=== PATIENT | female | born 1940 | race Hispanic/Latino ===

== ENCOUNTER 2017-04-06 11:49 | Inpatient (IN) | payer MEDICARE ==
[~2017-04-06] VITALS: Ht 157.5 cm; Wt 74.1 kg
[~2017-04-06 11:49] MED LIST: ACET650T9 PO; ASPI81TA40 PO; DOXY100C2 PO; ERGO500014 PO; FOLI1TAB15 PO; GABA-529 PO; HYDR200T4 PO; LEFL10TA15 PO; LEVO75 PO; METO5TAB2 PO; OMEP20CA10 PO; POTA10TA14 PO; SIMV40TA59 PO
[2017-04-06 12:17] LABS: BASOPHILS % (AUTO) 0.1 % (0.0-5.0); EOSINOPHILS % (AUTO) 1.1 % (0.0-8.0); HEMATOCRIT 34.5 % (36-48); LYMPHOCYTES % (AUTO) 5.4 % (21.0-51.0); MEAN CORPUSCULAR HEMOGLOBIN 32.8 pg (27.0-33.0); MEAN CORPUSCULAR HGB CONC 33.3 g/dL (32.0-36.0); MEAN CORPUSCULAR VOLUME 98.5 fL (79-99); MONOCYTES % (AUTO) 5.4 % (3.0-13.0); PLATELET COUNT (AUTO) 230 K/uL (130-400); RED BLOOD CELL COUNT(AUTO) 3.51 MIL/uL (4.00-5.50); RED CELL DISTRIBUTION WIDTH 15.8 % (11.0-15.5); WHITE BLOOD COUNT (AUTO) 12.3 K/uL (4.8-10.8)
[2017-04-06 12:26] LABS: POTASSIUM 4.2 mmol/L (3.5-5.1)
[2017-04-06 12:34] LABS: INR 0.95 (0.85-1.15); PARTIAL THROMBOPLASTIN TIME 30.7 SEC (26.3-35.5)
[2017-04-06 12:41] LABS: ALBUMIN 3.2 g/dL (3.5-5.0); BILIRUBIN,TOTAL 0.5 mg/dL (0.2-1.0); TOTAL PROTEIN, SERUM 7.3 g/dL (6.0-8.3)
[2017-04-06 12:44] LABS: CREATINE KINASE MB < 0.5 ng/mL (0.5-3.6)
[2017-04-06 12:45] LABS: CREATINE KINASE, TOTAL 57 U/L (21-232)
[2017-04-06] MEDS ORDERED: ASPIRIN 325 MG TABLET ONE (13:36)
[2017-04-06] MEDS ORDERED: FUROSEMIDE 10 MG/ML 4ML VIAL ONE (15:37)
[2017-04-06] MEDS ORDERED: CEFTRIAXONE SODIUM 1 GM ONE (15:38)
[2017-04-06] MEDS ORDERED: AZITHROMYCIN 500MG+NS 250ML 250 ML IV ONE (15:38)
[2017-04-06] MEDS ORDERED: IPRATROPIUM/ALBUTEROL SULFATE 3 ML SOLUTION IH ONE ×2 (16:23→19:23)
[2017-04-06] MEDS ORDERED: ACETAMINOPHEN EXTENDED RELEASE 650 MG TABLET PO PRN (17:15)
[2017-04-06 18:40] VITALS: BP 139/80
[2017-04-06] MEDS ORDERED: FURO20TA4 PO (19:19)
[2017-04-06] MEDS ORDERED: CARV12.511 PO (19:19)
[2017-04-06] MEDS ORDERED: ALLO300T2 PO (19:19)
[2017-04-06] MEDS ORDERED: CLON0.1T PO (19:19)
[2017-04-06] MEDS ORDERED: CILO100T PO (19:19)
[2017-04-06] MEDS ORDERED: VIT-12 PO (19:19)
[2017-04-06] MEDS ORDERED: FE F1CAP33 PO (19:19)
[2017-04-06 19:27] VITALS: BP 178/97
[2017-04-06] MEDS: HYDROXYCHLOROQUINE SULFATE 200 MG TAB PO SCH (20:17)
[2017-04-06] MEDS: ATORVASTATIN CALCIUM 20 MG TABLET PO SCH (20:18)
[2017-04-06] MEDS: GABAPENTIN 100 MG CAPSULE PO SCH (20:18)
[2017-04-06] MEDS: METOCLOPRAMIDE 5 MG TABLET PO SCH (20:18)
[2017-04-06 21:31] LABS: CREATINE KINASE MB < 0.5 ng/mL (0.5-3.6); CREATINE KINASE, TOTAL 53 U/L (21-232); MYOGLOBIN 104 ng/mL (10-92); TROPONIN I 0.45 ng/mL (0.00-0.06)
[2017-04-06 23:29] VITALS: BP 127/71
[2017-04-07] VITALS (7 sets, daily range): BP systolic 143–186; BP diastolic 72–94
[2017-04-07] MEDS: IPRATROPIUM/ALBUTEROL SULFATE 3 ML SOLUTION IH PRN ×3 (00:38→19:04)
[2017-04-07] MEDS ORDERED: ACETAMINOPHEN 325 MG TAB PO PRN (02:45)
[2017-04-07] MEDS ORDERED: BENZONATATE 100 MG CAPSULE PO ONE ×2 (02:50)
[2017-04-07] MEDS: BENZONATATE 100 MG CAPSULE PO PRN ×2 (02:53→21:12)
[2017-04-07] MEDS ORDERED: CLONIDINE HCL 0.1 MG TABLET ONE (04:08)
[2017-04-07] MEDS ORDERED: CLONIDINE HCL 0.1 MG TABLET PO PRN (04:15)
[2017-04-07 06:06] LABS: HEMATOCRIT 30.1 % (36-48); MEAN CORPUSCULAR HEMOGLOBIN 33.6 pg (27.0-33.0); MEAN CORPUSCULAR VOLUME 98.7 fL (79-99); PLATELET COUNT (AUTO) 223 K/uL (130-400); RED BLOOD CELL COUNT(AUTO) 3.05 MIL/uL (4.00-5.50); RED CELL DISTRIBUTION WIDTH 15.7 % (11.0-15.5)
[2017-04-07 06:21] LABS: CARBON DIOXIDE 26 mmol/L (21-32); CHLORIDE 107 mmol/L (101-111); GLOMERULAR FILTR. RATE CALC 58 mL/min (>60); GLUCOSE,RANDOM 118 mg/dL (70-105); POTASSIUM 3.4 mmol/L (3.5-5.1); SODIUM SERUM 142 mmol/L (136-145); UREA NITROGEN, BLOOD 20 mg/dL (7-18)
[2017-04-07 06:42] LABS: CREATINE KINASE MB < 0.5 ng/mL (0.5-3.6); CREATINE KINASE, TOTAL 46 U/L (21-232); MYOGLOBIN 76 ng/mL (10-92); TROPONIN I 0.47 ng/mL (0.00-0.06)
[2017-04-07] MEDS: LEVOTHYROXINE 75 MCG TABLET PO SCH (07:00)
[2017-04-07 07:09] LABS: EOSINOPHILS % (MANUAL) 2 % (1-6); LYMPHOCYTES % (MANUAL) 12 % (22-44); MAN.DIFF COMMENT-IMPRESSION MANUAL DIFFERENTIAL; MONOCYTES % (MANUAL) 9 % (2-9); SEGMENTED NEUTROPHILS % 77 % (40-70)
[2017-04-07 07:11] LABS: PLATELET MORPHOLOGY COMMENT ADEQUATE
[2017-04-07] MEDS: PANTOPRAZOLE SODIUM 40 MG TABLET.DR PO SCH (09:00)
[2017-04-07] MEDS: METOCLOPRAMIDE 5 MG TABLET PO SCH ×3 (09:00→21:03)
[2017-04-07] MEDS: GABAPENTIN 100 MG CAPSULE PO SCH ×3 (09:01→21:03)
[2017-04-07] MEDS: ASPIRIN 81 MG EC TAB PO SCH (09:01)
[2017-04-07] MEDS: FOLIC ACID 1 MG TABLET PO SCH (09:01)
[2017-04-07] MEDS: HYDROXYCHLOROQUINE SULFATE 200 MG TAB PO SCH ×2 (09:01→21:04)
[2017-04-07] MEDS: CEFTRIAXONE SODIUM 1 GM IVP SCH (14:46)
[2017-04-07] MEDS: AZITHROMYCIN 500MG+NS 250ML 250 ML IV SCH (15:53)
[2017-04-07] MEDS: FUROSEMIDE 20 MG TABLET PO SCH (16:25)
[2017-04-07] MEDS: CILOSTAZOL 100 MG TAB PO SCH (16:25)
[2017-04-07] MEDS: Leflunomide 10 MG PO SCH (16:26)
[2017-04-07] MEDS ORDERED: POTASSIUM CHLORIDE 10% ELIXIR 20 MEQ/15 ML UDCUP PO PRN (19:30)
[2017-04-07] MEDS ORDERED: POTASSIUM CHLORIDE 20 MEQ ERTAB PO PRN (19:30)
[2017-04-07] MEDS ORDERED: POTASSIUM CHLORIDE 20MEQ/100ML 100 ML IV PRN (19:30)
[2017-04-07] MEDS ORDERED: LIDOCAINE HCL-MPF 1% 2ML VIAL IVP PRN (19:30)
[2017-04-07] MEDS ORDERED: POTASSIUM CHLORIDE 10 MEQ/TAB.SA PO ONE ×4 (20:58→22:29)
[2017-04-07] MEDS: CLONIDINE HCL 0.1 MG TABLET PO SCH (21:03)
[2017-04-07] MEDS: ATORVASTATIN CALCIUM 20 MG TABLET PO SCH (21:04)
[2017-04-07] MEDS: CARVEDILOL 12.5 MG TABLET PO SCH (23:47)
[2017-04-08 03:43] VITALS: BP 159/75
[2017-04-08 04:10] LABS: HEMATOCRIT 33.5 % (36-48); MEAN CORPUSCULAR HEMOGLOBIN 32.5 pg (27.0-33.0); MEAN CORPUSCULAR VOLUME 98.7 fL (79-99); PLATELET COUNT (AUTO) 250 K/uL (130-400); RED BLOOD CELL COUNT(AUTO) 3.39 MIL/uL (4.00-5.50); RED CELL DISTRIBUTION WIDTH 15.7 % (11.0-15.5); WHITE BLOOD COUNT (AUTO) 8.4 K/uL (4.8-10.8)
[2017-04-08 04:13] LABS: CREATININE 0.9 mg/dL (0.5-1.5); POTASSIUM 3.8 mmol/L (3.5-5.1)
[2017-04-08 04:29] LABS: BAND NEUTROPHILS % (MANUAL) 2 % (0-2); EOSINOPHILS % (MANUAL) 3 % (1-6); LYMPHOCYTES % (MANUAL) 10 % (22-44); MAN.DIFF COMMENT-IMPRESSION MANUAL DIFFERENTIAL; MONOCYTES % (MANUAL) 6 % (2-9); SEGMENTED NEUTROPHILS % 79 % (40-70)
[2017-04-08 04:30] LABS: PLATELET MORPHOLOGY COMMENT ADEQUATE
[2017-04-08] MEDS: LEVOTHYROXINE 75 MCG TABLET PO SCH (06:34)
[2017-04-08 07:00] VITALS: BP 179/84
[2017-04-08] MEDS ORDERED: MAG HYDROX/AL HYDROX/SIMETH ES 30 ML SUSP UDCUP PO PRN (07:15)
[2017-04-08] MEDS: LACTULOSE 20 GM/30 ML UDCUP PO SCH ×2 (09:00→20:24)
[2017-04-08] MEDS: HYDROXYCHLOROQUINE SULFATE 200 MG TAB PO SCH ×2 (09:38→20:46)
[2017-04-08] MEDS: ALLOPURINOL 300 MG TABLET PO SCH (09:38)
[2017-04-08] MEDS: CLONIDINE HCL 0.1 MG TABLET PO SCH ×2 (09:39→20:26)
[2017-04-08] MEDS: FE FUMARATE/FA/MV, MIN COMB#15 1 TAB PO SCH (09:39)
[2017-04-08] MEDS: METOCLOPRAMIDE 5 MG TABLET PO SCH ×3 (09:40→20:25)
[2017-04-08] MEDS: PANTOPRAZOLE SODIUM 40 MG TABLET.DR PO SCH (09:40)
[2017-04-08] MEDS: ASPIRIN 81 MG EC TAB PO SCH (09:40)
[2017-04-08] MEDS: FOLIC ACID 1 MG TABLET PO SCH (09:40)
[2017-04-08] MEDS: CARVEDILOL 12.5 MG TABLET PO SCH ×2 (09:40→20:24)
[2017-04-08] MEDS: GABAPENTIN 100 MG CAPSULE PO SCH ×3 (09:41→20:25)
[2017-04-08] MEDS: CILOSTAZOL 100 MG TAB PO SCH ×2 (09:45→17:04)
[2017-04-08] MEDS: FUROSEMIDE 20 MG TABLET PO SCH ×2 (09:45→17:04)
[2017-04-08 11:00] VITALS: BP 138/82
[2017-04-08] MEDS: CEFTRIAXONE SODIUM 1 GM IVP SCH (13:52)
[2017-04-08 16:00] VITALS: BP 155/86
[2017-04-08] MEDS: AZITHROMYCIN 500MG+NS 250ML 250 ML IV SCH (16:07)
[2017-04-08] MEDS: Leflunomide 10 MG PO SCH (17:00)
[2017-04-08 19:25] VITALS: BP 167/87
[2017-04-08] MEDS: ATORVASTATIN CALCIUM 20 MG TABLET PO SCH (20:24)
[2017-04-08 23:31] VITALS: BP 146/81
[2017-04-09] MEDS: BENZONATATE 100 MG CAPSULE PO PRN (03:14)
[2017-04-09 03:50] VITALS: BP 165/95
[2017-04-09 04:30] LABS: HEMATOCRIT 32.9 % (36-48); MEAN CORPUSCULAR HEMOGLOBIN 33.3 pg (27.0-33.0); MEAN CORPUSCULAR HGB CONC 33.9 g/dL (32.0-36.0); MEAN CORPUSCULAR VOLUME 98.1 fL (79-99); PLATELET COUNT (AUTO) 266 K/uL (130-400); RED BLOOD CELL COUNT(AUTO) 3.35 MIL/uL (4.00-5.50); RED CELL DISTRIBUTION WIDTH 15.3 % (11.0-15.5); WHITE BLOOD COUNT (AUTO) 9.2 K/uL (4.8-10.8)
[2017-04-09] MEDS: LEVOTHYROXINE 75 MCG TABLET PO SCH (06:00)
[2017-04-09 06:08] LABS: BAND NEUTROPHILS % (MANUAL) 2 % (0-2); EOSINOPHILS % (MANUAL) 1 % (1-6); LYMPHOCYTES % (MANUAL) 8 % (22-44); MAN.DIFF COMMENT-IMPRESSION MANUAL DIFFERENTIAL; MONOCYTES % (MANUAL) 5 % (2-9); REACTIVE LYMPHOCYTES 1 % (0-0); SEGMENTED NEUTROPHILS % 83 % (40-70)
[2017-04-09 07:00] VITALS: BP 172/93
[2017-04-09] MEDS: FUROSEMIDE 20 MG TABLET PO SCH (08:00)
[2017-04-09] MEDS ORDERED: LEVO500T89 PO (08:32)
[2017-04-09] MEDS: LACTULOSE 20 GM/30 ML UDCUP PO SCH (09:00)
[2017-04-09] MEDS: PANTOPRAZOLE SODIUM 40 MG TABLET.DR PO SCH (09:18)
[2017-04-09] MEDS: ALLOPURINOL 300 MG TABLET PO SCH (09:19)
[2017-04-09] MEDS: FOLIC ACID 1 MG TABLET PO SCH (09:19)
[2017-04-09] MEDS: ASPIRIN 81 MG EC TAB PO SCH (09:19)
[2017-04-09] MEDS: CLONIDINE HCL 0.1 MG TABLET PO SCH (09:19)
[2017-04-09] MEDS: CILOSTAZOL 100 MG TAB PO SCH (09:19)
[2017-04-09] MEDS: METOCLOPRAMIDE 5 MG TABLET PO SCH (09:19)
[2017-04-09] MEDS: HYDROXYCHLOROQUINE SULFATE 200 MG TAB PO SCH (09:19)
[2017-04-09 09:20] VITALS: BP 172/93
[2017-04-09] MEDS: FE FUMARATE/FA/MV, MIN COMB#15 1 TAB PO SCH (09:20)
[2017-04-09] MEDS: CARVEDILOL 12.5 MG TABLET PO SCH (09:20)
[2017-04-09] MEDS: GABAPENTIN 100 MG CAPSULE PO SCH (09:20)
== END 2017-04-09 11:15 | disposition home or self-care (01) | DRG 871 ==
LOC: EDH 11:49 → EDHIP 15:53 → 2DH 18:09
PROVIDERS: ADMIT Internal Medicine Nephrology; ATTEND Internal Medicine Nephrology
DX: A41.9 Sepsis, unspecified organism (principal); J18.9 Pneumonia, unspecified organism; I50.33 Acute on chronic diastolic (congestive) heart failure; E87.8 Other disorders of electrolyte and fluid balance, not elsewhere classified; E11.9 Type 2 diabetes mellitus without complications; E07.9 Disorder of thyroid, unspecified; E78.00 Pure hypercholesterolemia, unspecified; I10 Essential (primary) hypertension; I25.10 Atherosclerotic heart disease of native coronary artery without angina pectoris; K59.00 Constipation, unspecified; Z82.49 Family history of ischemic heart disease and other diseases of the circulatory system; Z83.3 Family history of diabetes mellitus; Z95.1 Presence of aortocoronary bypass graft; M19.90 Unspecified osteoarthritis, unspecified site; Z90.49 Acquired absence of other specified parts of digestive tract
CPT/HCPCS: 36415; 71045; 80048; 80053; 82550; 82553; 83605; 83874; 83880; 84484; 85025; 85610; 85730; 87040; 87804; 93005; 94640; 94664; A4218; J0456; J0696; J1940

== ENCOUNTER 2018-03-17 19:58 | Observation (INO) | payer MEDICARE ==
[~2018-03-17] VITALS: Ht 152.4 cm; Wt 87.6 kg
[~2018-03-17 19:58] MED LIST changes: -ACET650T9 PO; +ALLO300T2 PO; +CARV12.511 PO; +CILO100T PO; +CLON0.1T PO; -DOXY100C2 PO; -ERGO500014 PO; +FE F1CAP33 PO; +FURO20TA4 PO; -HYDR200T4 PO; -LEFL10TA15 PO; +LEVO500T89 PO; +[UNRECOGNIZED DRUG - CODE] PO
[2018-03-17 21:04] LABS: BASOPHILS % (AUTO) 0.7 % (0.0-5.0); EOSINOPHILS % (AUTO) 3.7 % (0.0-8.0); HEMATOCRIT 38.1 % (36-48); LYMPHOCYTES % (AUTO) 16.1 % (21.0-51.0); MEAN CORPUSCULAR HGB CONC 33.6 g/dL (32.0-36.0); MEAN CORPUSCULAR VOLUME 95.1 fL (79-99); MONOCYTES % (AUTO) 6.2 % (3.0-13.0); NEUTROPHILS % (AUTO) 73.3 % (40.0-77.0); NUCLEATED RED BLOOD CELLS 0.6 % (0.0-0.19); PLATELET COUNT (AUTO) 178 K/uL (130-400); RED CELL DISTRIBUTION WIDTH 13.6 % (11.0-15.5); WHITE BLOOD COUNT (AUTO) 8.9 K/uL (4.8-10.8)
[2018-03-17 21:10] LABS: APPEARANCE,URINE Clear (CLEAR); BILIRUBIN,URINE Negative (NEGATIVE); COLOR,URINE Yellow (YELLOW); GLUCOSE, URINE (UA) Negative (NEGATIVE); KETONES,URINE Negative (NEGATIVE); LEUKOCYTE ESTERASE ,URINE Trace (NEGATIVE); NITRATE,URINE Negative (NEGATIVE); OCCULT BLOOD,URINE Negative (NEGATIVE); PH,URINE 7.5 (5.0-8.0); PROTEIN,URINE Negative (NEGATIVE); UROBILINOGEN,URINE 0.2 mg/dL (0.2-1.0)
[2018-03-17] MEDS ORDERED: TETANUS/DIPHTHERIA TOXOID [ADULT] 0.5 ML VIAL IM ONE (21:15)
[2018-03-17 21:43] LABS: CREATININE 1.4 mg/dL (0.5-1.5); POTASSIUM 3.7 mmol/L (3.5-5.1)
[2018-03-17 21:47] LABS: ALBUMIN 3.3 g/dL (3.5-5.0); BILIRUBIN,TOTAL 0.3 mg/dL (0.2-1.0); TOTAL PROTEIN, SERUM 6.6 g/dL (6.0-8.3)
[2018-03-17 22:03] LABS: BACTERIA,URINE Rare /HPF (None Seen); RBC,URINE 0-1 /HPF (0-1); SQUAMOUS EPITHELIAL CELL,UR Rare /HPF (0-2); WBC,URINE 0-1 /HPF (0-1)
[2018-03-17 22:06] LABS: PLATELET MORPHOLOGY LARGE PLTS PRESENT
[2018-03-17] MEDS ORDERED: ASPIRIN 325 MG TABLET ONE (22:17)
[2018-03-18] VITALS (7 sets, daily range): BP systolic 146–203; BP diastolic 73–107
[2018-03-18] MEDS ORDERED: CHOL500050 PO (02:22)
[2018-03-18] MEDS ORDERED: BISA5TAB12 PO (02:22)
[2018-03-18] MEDS ORDERED: SIMV40TA59 PO (02:22)
[2018-03-18] MEDS ORDERED: MEMA10TA20 PO (02:22)
[2018-03-18] MEDS ORDERED: MONT10TA24 PO (02:22)
[2018-03-18] MEDS ORDERED: FE F1CAP8 PO (02:22)
[2018-03-18 04:34] LABS: HEMATOCRIT 37.4 % (36-48); MEAN CORPUSCULAR HEMOGLOBIN 31.5 pg (27.0-33.0); MEAN CORPUSCULAR HGB CONC 33.4 g/dL (32.0-36.0); MEAN CORPUSCULAR VOLUME 94.4 fL (79-99); PLATELET COUNT (AUTO) 170 K/uL (130-400); RED BLOOD CELL COUNT(AUTO) 3.96 MIL/uL (4.00-5.50); RED CELL DISTRIBUTION WIDTH 13.4 % (11.0-15.5)
[2018-03-18 05:09] LABS: POTASSIUM 3.8 mmol/L (3.5-5.1)
[2018-03-18 05:10] LABS: ALBUMIN 3.3 g/dL (3.5-5.0); CREATININE 1.1 mg/dL (0.5-1.5)
[2018-03-18 05:22] LABS: BILIRUBIN,TOTAL 0.4 mg/dL (0.2-1.0); TOTAL PROTEIN, SERUM 6.9 g/dL (6.0-8.3)
--- NOTE | 2018-03-18 06:59 | NUR ---
PATIENT UPDATE ADMITTED A 77 YR OLD FEMALE LAST NIGHT S/P FALL FROM HOME WITH ELEVATED TROPONIN. SKIN TEAR TO THE LEFT UPPER ARM, DRESSING DRY AND INTACT FROM ER. NO CHEST PAIN OVERNIGHT, NO SHORTNESS OF BREATH. RUNNING NSR WITH NO ST ELEVATION, TROPONIN WAS LAST NIGHT AND 0.18 THIS AM. FALL PRECAUTIONS, GETS UP TO THE RESTROOM WITH ASSISTANCE, PT VERY WEAK. BROUGHT HER WC FROM HOME BUT LOOKS SMALL FOR THE PT SIZE. USED THE WALKER WITH WHEELS IN GOING TO THE RESTROOM THIS EARLY AM. SLEPT FAIRLY OVERNIGHT, NO COMPLAINTS VOICED OUT, SCD'S ON FOR VTE PROTOCOL. RUNNING HYPERTENSIVE LAST NIGHT, PT ALLOWED TO TAKE MEDS FROM HOME. MINIMAL ORDERS FROM THE ADMITTING MD.
--- NOTE | 2018-03-18 10:00 | NUR ---
as per dr. chino, if troponin lower than .18 no cardio consult, if higher than .18 call me for cardio cosult. possible d/c tomorrow if stable.
[2018-03-18] MEDS: METOCLOPRAMIDE 5 MG TABLET PO SCH ×2 (11:30→17:46)
--- NOTE | 2018-03-18 12:00 | NUR ---
PER DR. CESAR IF CAROTIDS ARE NEGATIVE MAY D/C FROM MY STANDPOINT. Addendum: 03/18/18 at 2020 by ERASMO LOVELACE RN RN WRONG PATIENT DOCUMENTATION
--- NOTE | 2018-03-18 15:40 | NUR ---
HAROONP\BHUPENDRA TRIGGER Adela met with pt and grandson. Pt states she lives in daughter Kaci Velazquez's [id number] home. Pt attends [facility] daily, daughter is provider 2x a day, pt has inocencio w/kaela, hospital bed, bsc, shwr chair,no HH. Pt states she is never at home alone. Pt states she does not know what happened, she reach for the light switch and next thing she knew she was on the floor. Pt denies need for any assistance or referrals at this time. Plan is home with family and current services Addendum: 03/18/18 at 1545 by WILFRIDO HUIZAR Amended: Links added.
--- NOTE | 2018-03-18 16:00 | NUR ---
BERTA HAMPTON WITH PT 7 CHANNING, SWAZI SPEAKING, AAOX 3, LIVES WITH FAMILY AND STATES IS NEVER LEFT ALONE AND FEELS SAFE TO RETURN TO HOME ENVIROMENT. REVIEWED PT NOTES. ENCOURAGED PT TO CONSIDER GETTING MORE ACTIVITY AND PBALANCE AND COORDINATION IS DECREASING, MAY BE MORE AT RISK FOR FALLS IN THE FUTURE. AT THIS TIME PLAN IS HOME, WILL FOLLOW NEEDED Addendum: 03/18/18 at 1950 by ADRIANNE VIZCAINO RN CM Amended: Links added.
[2018-03-18] MEDS: CILOSTAZOL 100 MG TAB PO SCH (17:00)
[2018-03-18] MEDS: FUROSEMIDE 20 MG TABLET PO SCH (17:45)
[2018-03-18] MEDS: FE FUMARATE/FA/MV, MIN COMB#15 1 TAB PO SCH (17:46)
--- NOTE | 2018-03-18 20:15 | NUR ---
PER DR GALEANA CARDIO MONITOR OVERNIGHT AND POSSIBLE D/C TOMORROW SEE ORDERS. D/T ZORAIDA 45'S Addendum: 03/18/18 at 2018 by ERASMO LOVELACE RN RN WRONG PATIENT DOCUMENTATION
[2018-03-18] MEDS ORDERED: SIMVASTATIN 20 MG TABLET PO SCH (21:00)
[2018-03-18] MEDS ORDERED: MONTELUKAST SODIUM 10 MG TAB PO SCH (21:00)
[2018-03-18] MEDS: CLONIDINE HCL 0.1 MG TABLET PO SCH (22:02)
[2018-03-18] MEDS: MEMANTINE HCL 5 MG TABLET PO SCH (22:02)
[2018-03-19] VITALS: BP 162/92
[2018-03-19] MEDS ORDERED: ERGOCALCIFEROL (VITAMIN D2) 50,000 UNIT CAPSULE PO SCH
[2018-03-19 04:00] VITALS: BP 169/90
[2018-03-19 05:00] LABS: HEMATOCRIT 34.2 % (36-48); MEAN CORPUSCULAR HEMOGLOBIN 31.7 pg (27.0-33.0); MEAN CORPUSCULAR HGB CONC 33.5 g/dL (32.0-36.0); MEAN CORPUSCULAR VOLUME 94.6 fL (79-99); PLATELET COUNT (AUTO) 173 K/uL (130-400); RED BLOOD CELL COUNT(AUTO) 3.61 MIL/uL (4.00-5.50); RED CELL DISTRIBUTION WIDTH 13.9 % (11.0-15.5); WHITE BLOOD COUNT (AUTO) 5.3 K/uL (4.8-10.8)
[2018-03-19 05:15] LABS: BAND NEUTROPHILS % (MANUAL) 2 % (0-2); BASOPHILS % (MANUAL) 2 % (0-2); EOSINOPHILS % (MANUAL) 2 % (1-6); LYMPHOCYTES % (MANUAL) 33 % (22-44); MAN.DIFF COMMENT-IMPRESSION MANUAL DIFFERENTIAL; MONOCYTES % (MANUAL) 6 % (2-9); SEGMENTED NEUTROPHILS % 55 % (40-70)
[2018-03-19 05:16] LABS: CREATININE 0.9 mg/dL (0.5-1.5); PLATELET MORPHOLOGY COMMENT ADEQUATE; POTASSIUM 3.7 mmol/L (3.5-5.1)
[2018-03-19 07:00] VITALS: BP 176/73
[2018-03-19] MEDS ORDERED: PANTOPRAZOLE SODIUM 40 MG TABLET.DR PO SCH (07:30)
[2018-03-19] MEDS ORDERED: LEVOTHYROXINE 75 MCG TABLET PO SCH (07:30)
[2018-03-19] MEDS ORDERED: FOLIC ACID 1 MG TABLET PO SCH (09:00)
[2018-03-19] MEDS ORDERED: ASPIRIN 81 MG EC TAB PO SCH (09:00)
[2018-03-19] MEDS ORDERED: POTASSIUM CHLORIDE 10 MEQ/TAB.SA PO SCH (09:00)
[2018-03-19] MEDS ORDERED: BISACODYL 5 MG TABLET.DR PO SCH (09:00)
[2018-03-19] MEDS: METOCLOPRAMIDE 5 MG TABLET PO SCH ×2 (09:44→12:49)
[2018-03-19] MEDS: FE FUMARATE/FA/MV, MIN COMB#15 1 TAB PO SCH (09:44)
[2018-03-19] MEDS: MEMANTINE HCL 5 MG TABLET PO SCH (09:45)
--- NOTE | 2018-03-19 09:45 | NUR ---
Status Notified Dr. Hernandez that patient is a 2 day Observation and updated an SS eval. Pending response. CD
[2018-03-19] MEDS: CLONIDINE HCL 0.1 MG TABLET PO SCH (09:46)
[2018-03-19] MEDS: FUROSEMIDE 20 MG TABLET PO SCH (09:50)
[2018-03-19] MEDS: CILOSTAZOL 100 MG TAB PO SCH (09:50)
--- NOTE | 2018-03-19 10:10 | NUR ---
Status Follow-Up Per Dr. Brown, will dc later today. CD Addendum: 03/19/18 at 1011 by DAKSHA ALVAREZ CM Amended: Links added.
[2018-03-19 11:00] VITALS: BP 171/90
--- NOTE | 2018-03-19 12:30 | NUR ---
DR. ALLISON ARVIZU NOTIFIED OF PATIENTS BLOOD PRESSURE AND HEART RHYTHM. BP AT 171/90-63 HEART RATE . IN NO ACUTE DISTRESS NOTED.
[2018-03-19] MEDS ORDERED: AMLO5TAB4 PO (12:50)
--- NOTE | 2018-03-19 12:53 | NUR ---
DR. ARVIZU HERE TO SEE PATIENT. NEW PRESCRIBTION ORDERED.
[2018-03-19] MEDS ORDERED: AMLODIPINE BESYLATE 5 MG TAB PO ONE (14:30)
[2018-03-19 16:00] VITALS: BP 161/74
--- NOTE | 2018-03-19 16:21 | NUR ---
DISCHARGE INSTRUCTIONS GIVEN. PRESCRIPTION GIVEN. BLOOD PRESSURE AT 161/74-[address] ARVIZU MADE AWARE. NEW PRESCRIPTION FOR NORVASC 5 MG GIVEN. INSTRUCTED DAUGHTER THAT APPOINTMENT WAS MADE WITH DR. STEVE ON MAR 30, 2018 AT 2:45. PATIENT DAUGHTER TO MAKE APPOINTMENT WITH DR. ALLISON ARVIZU FOR FOLLOW UP. PATIENT VOICES NO COMPLAINTS. AWAKE AND ALERT, IV DISCONTINUED WITH INNER CANNULA INTACT. DAUGHTER HERE TO TRANSPORT PATIENT HOME.
== END 2018-03-19 16:32 | disposition home or self-care (01) ==
LOC: EDH 19:58 → EDHIP 22:50 → 3CH 03-18 00:10
PROVIDERS: ADMIT Internal Medicine Nephrology; ATTEND Internal Medicine Nephrology
DX: M25.552 Pain in left hip (principal); E11.9 Type 2 diabetes mellitus without complications; E78.00 Pure hypercholesterolemia, unspecified; I10 Essential (primary) hypertension; I25.10 Atherosclerotic heart disease of native coronary artery without angina pectoris; W18.30XA Fall on same level, unspecified, initial encounter; Y93.89 Activity, other specified; Y92.009 Unspecified place in unspecified non-institutional (private) residence as the place of occurrence of the external cause; Y99.8 Other external cause status; Z95.1 Presence of aortocoronary bypass graft; Z23 Encounter for immunization
CPT/HCPCS: 36415 ×3; 70450; 71045; 72125; 72170; 73080; 80048; 80053 ×2; 81001; 83880; 84484 ×3; 85025 ×2; 85027; 90471; 90714; 93005; 97039; 97116; 97161; 99284; G0378 ×42; G8978; G8979; G8980; G8981; G8982; G8983

== ENCOUNTER → 2018-06-18 | Outpatient (CLI) | payer MEDICARE ==
[~2018-06-18] MED LIST changes: -ALLO300T2 PO; +AMLO5TAB4 PO; +BISA5TAB12 PO; -CARV12.511 PO; +CHOL500050 PO; -FE F1CAP33 PO; +FE F1CAP8 PO; -LEVO500T89 PO; +MEMA10TA20 PO; +MONT10TA24 PO; -[UNRECOGNIZED DRUG - CODE] PO
== END | disposition home or self-care (01) ==
LOC: SHCH 08:58
PROVIDERS: ATTEND Internal Medicine Cardiovascular Disease
DX: I35.0 Nonrheumatic aortic (valve) stenosis (principal); I10 Essential (primary) hypertension
CPT/HCPCS: 93306

== ENCOUNTER → 2019-04-13 | Outpatient (CLI) | payer OTHER, MEDICARE ==
[~2019-04-13] MED LIST changes: -MEMA10TA20 PO; +MEMA10TA55 PO; -MONT10TA24 PO; +MONT10TA26 PO; -OMEP20CA10 PO; +OMEP20CA12 PO
== END | disposition home or self-care (01) ==
LOC: SHCH 08:43
PROVIDERS: ATTEND Internal Medicine Cardiovascular Disease
DX: M79.606 Pain in leg, unspecified (principal)
CPT/HCPCS: 93922

== ENCOUNTER → 2019-08-01 | Outpatient (CLI) | payer OTHER, MEDICARE ==
[~2019-08-01] MED LIST changes: -AMLO5TAB4 PO; -ASPI81TA40 PO; -BISA5TAB12 PO; -CHOL500050 PO; -CILO100T PO; -CLON0.1T PO; -FE F1CAP8 PO; -FOLI1TAB15 PO; -FURO20TA4 PO; -GABA-529 PO; +IOHEXOL 350 MG/ML 100ML INFUS..BTL IV ONE; -LEVO75 PO; -MEMA10TA55 PO; -METO5TAB2 PO; -MONT10TA26 PO; -OMEP20CA12 PO; -POTA10TA14 PO; -SIMV40TA59 PO
== END | disposition home or self-care (01) ==
LOC: RAH 07:36
PROVIDERS: ATTEND Internal Medicine Cardiovascular Disease
DX: I70.213 Atherosclerosis of native arteries of extremities with intermittent claudication, bilateral legs (principal); R94.39 Abnormal result of other cardiovascular function study
CPT/HCPCS: 73706 ×2; Q9967

== ENCOUNTER 2019-09-24 22:56 | Observation (INO) | payer OTHER, MEDICARE ==
[~2019-09-24] VITALS: Ht 154.9 cm; Wt 88.9 kg
[~2019-09-24 22:56] MED LIST changes: +AMLO5TAB4 PO; +ASPI81TA40 PO; +BISA5TAB12 PO; +CHOL500050 PO; +CILO100T PO; +CLON0.1T PO; +FE F1CAP8 PO; +FOLI1TAB15 PO; +FURO20TA4 PO; +GABA-529 PO; -IOHEXOL 350 MG/ML 100ML INFUS..BTL IV ONE; +LEVO75 PO; +MEMA10TA55 PO; +METO5TAB2 PO; +MONT10TA26 PO; +OMEP20CA12 PO; +POTA10TA14 PO; +SIMV40TA59 PO
[2019-09-24] MEDS ORDERED: ONDANSETRON HCL 4 MG/2 ML VIAL ONE (23:29)
[2019-09-24 23:30] LABS: BASOPHILS % (AUTO) 0.2 % (0.0-5.0); EOSINOPHILS % (AUTO) 0.5 % (0.0-8.0); HEMATOCRIT 41.5 % (36-48); LYMPHOCYTES % (AUTO) 6.9 % (21.0-51.0); MEAN CORPUSCULAR HEMOGLOBIN 30.8 pg (27.0-33.0); MEAN CORPUSCULAR HGB CONC 32.5 g/dL (32.0-36.0); MEAN CORPUSCULAR VOLUME 94.5 fL (79-99); MONOCYTES % (AUTO) 4.1 % (3.0-13.0); NEUTROPHILS % (AUTO) 87.9 % (40.0-77.0); PLATELET COUNT (AUTO) 171 K/uL (130-400); RED BLOOD CELL COUNT(AUTO) 4.39 MIL/uL (4.00-5.50); RED CELL DISTRIBUTION WIDTH 13.5 % (11.0-15.5); WHITE BLOOD COUNT (AUTO) 10.1 K/uL (4.8-10.8)
[2019-09-24 23:32] LABS: CREATININE 1.2 mg/dL (0.5-1.5); POTASSIUM 4.6 mmol/L (3.5-5.1)
[2019-09-24 23:36] LABS: ALBUMIN 3.8 g/dL (3.5-5.0); BILIRUBIN,TOTAL 0.6 mg/dL (0.2-1.0); TOTAL PROTEIN, SERUM 7.2 g/dL (6.0-8.3)
[2019-09-24 23:37] LABS: INR 0.93 (0.85-1.15); PARTIAL THROMBOPLASTIN TIME 24.2 SEC (26.3-35.5); PROTHROMBIN TIME 10.1 SEC (9.6-11.6)
[2019-09-24 23:54] LABS: B-TYPE NATRIURETIC PEPTIDE 84 pg/mL (0-100)
[2019-09-24 23:59] LABS: APPEARANCE,URINE CLEAR (CLEAR); BILIRUBIN,URINE SMALL (NEGATIVE); COLOR,URINE YELLOW (YELLOW); GLUCOSE, URINE (UA) NEGATIVE (NEGATIVE); KETONES,URINE 5 mg/dL (NEGATIVE); LEUKOCYTE ESTERASE ,URINE MODERATE (NEGATIVE); NITRATE,URINE NEGATIVE (NEGATIVE); OCCULT BLOOD,URINE TRACE-INTACT (NEGATIVE); PH,URINE 5.5 (5.0-8.0); PROTEIN,URINE 100 mg/dL (NEGATIVE)
[2019-09-25] MEDS ORDERED: LEVOFLOXACIN 500 MG/D5W 100 ML 100 ML ONE (00:17)
[2019-09-25] MEDS ORDERED: ASPIRIN 325 MG TABLET ONE (00:22)
[2019-09-25] MEDS ORDERED: METRONIDAZOLE 500MG/100ML BAG 100 ML ONE (01:12)
[2019-09-25] MEDS ORDERED: ACETAMINOPHEN 325 MG TAB PO PRN (02:30)
[2019-09-25] MEDS ORDERED: ONDANSETRON HCL 4 MG/2 ML VIAL IVP PRN (02:30)
[2019-09-25] MEDS ORDERED: LEVOFLOXACIN 500 MG/D5W 100 ML 100 ML IV SCH (03:00)
[2019-09-25 09:20] VITALS: BP 161/68
[2019-09-25 10:06] LABS: MAGNESIUM 1.8 mg/dL (1.80-2.40); PHOSPHORUS 3.7 mg/dL (2.5-4.9)
[2019-09-25 11:00] VITALS: BP 165/88
[2019-09-25] MEDS: METRONIDAZOLE 500MG/100ML BAG 100 ML IVPB SCH ×4 (12:00→16:28)
[2019-09-25] MEDS: LACTATED RINGERS 1000ML 1,000 ML IV SCH ×3 (12:30→17:06)
[2019-09-25] MEDS ORDERED: MEMA10TA11 PO (14:08)
[2019-09-25] MEDS ORDERED: LEVO112T7 PO (15:44)
[2019-09-25] MEDS ORDERED: GABA300S PO (15:45)
[2019-09-25 16:00] VITALS: BP 175/95
[2019-09-25] MEDS ORDERED: ERGOCALCIFEROL (VITAMIN D2) 50,000 UNIT CAPSULE PO SCH (16:00)
[2019-09-25] MEDS: CEFTRIAXONE SODIUM 1 GM IVP SCH (16:36)
[2019-09-25] MEDS: FUROSEMIDE 20 MG TABLET PO SCH (16:38)
[2019-09-25] MEDS: CILOSTAZOL 100 MG TAB PO SCH (16:38)
[2019-09-25 20:00] VITALS: BP 161/89
[2019-09-25] MEDS: METOCLOPRAMIDE 5 MG TABLET PO SCH (20:16)
[2019-09-25] MEDS: CLONIDINE HCL 0.1 MG TABLET PO SCH (20:17)
[2019-09-25] MEDS ORDERED: SIMVASTATIN 20 MG TABLET PO SCH (21:00)
[2019-09-26] VITALS: BP 153/74
[2019-09-26 04:03] VITALS: BP 159/83
[2019-09-26] MEDS: METRONIDAZOLE 500MG/100ML BAG 100 ML IVPB SCH ×2 (05:55→05:56)
[2019-09-26] MEDS ORDERED: LEVOTHYROXINE 112 MCG TABLET PO SCH (06:30)
[2019-09-26 08:00] VITALS: BP 172/91
[2019-09-26 08:02] LABS: BASOPHILS % (AUTO) 0.4 % (0.0-5.0); EOSINOPHILS % (AUTO) 3.7 % (0.0-8.0); HEMATOCRIT 38.2 % (36-48); LYMPHOCYTES % (AUTO) 22.5 % (21.0-51.0); MEAN CORPUSCULAR HEMOGLOBIN 30.3 pg (27.0-33.0); MEAN CORPUSCULAR HGB CONC 32.2 g/dL (32.0-36.0); MEAN CORPUSCULAR VOLUME 94.1 fL (79-99); MONOCYTES % (AUTO) 7.5 % (3.0-13.0); NEUTROPHILS % (AUTO) 65.7 % (40.0-77.0); PLATELET COUNT (AUTO) 164 K/uL (130-400); RED BLOOD CELL COUNT(AUTO) 4.06 MIL/uL (4.00-5.50); RED CELL DISTRIBUTION WIDTH 13.7 % (11.0-15.5); WHITE BLOOD COUNT (AUTO) 5.1 K/uL (4.8-10.8)
[2019-09-26] MEDS ORDERED: AMLODIPINE BESYLATE 5 MG TAB PO SCH (09:00)
[2019-09-26] MEDS ORDERED: ASPIRIN 81 MG EC TAB PO SCH (09:00)
[2019-09-26] MEDS ORDERED: GABAPENTIN 300 MG CAPSULE PO SCH (09:00)
[2019-09-26] MEDS ORDERED: MEMANTINE HCL 5 MG TABLET PO SCH (09:00)
[2019-09-26] MEDS ORDERED: POTASSIUM CHLORIDE 10 MEQ/TAB.SA PO SCH (09:00)
[2019-09-26] MEDS ORDERED: FOLIC ACID 1 MG TABLET PO SCH (09:00)
[2019-09-26] MEDS ORDERED: PANTOPRAZOLE SODIUM 40 MG TABLET.DR PO SCH (09:00)
[2019-09-26 09:50] LABS: POTASSIUM 3.7 mmol/L (3.5-5.1)
[2019-09-26] MEDS: CLONIDINE HCL 0.1 MG TABLET PO SCH (09:52)
[2019-09-26] MEDS: FUROSEMIDE 20 MG TABLET PO SCH (09:53)
[2019-09-26] MEDS: CILOSTAZOL 100 MG TAB PO SCH (09:53)
[2019-09-26] MEDS: METOCLOPRAMIDE 5 MG TABLET PO SCH ×2 (10:05→15:20)
[2019-09-26 12:00] VITALS: BP 168/73
[2019-09-26] MEDS ORDERED: METRONIDAZOLE 500MG/100ML BAG 100 ML IVPB SCH (14:00)
[2019-09-26] MEDS ORDERED: METR500T PO (14:35)
[2019-09-26] MEDS: CEFTRIAXONE SODIUM 1 GM IVP SCH (15:20)
[2019-09-26 16:00] VITALS: BP 131/72
--- NOTE | 2019-09-26 17:45 | NUR ---
DISCHARGE PATIENT GIVEN DISCHARGE INSTRUCTIONS VIA TEACH BACK. 18G PIV AND 20G PIV DISCONTINUED, TIPS INTACT. E-RX SENT TO [facility] IN [place] FOR FLAGYL 500MG 1 TAB PO TID X 10 DAYS. PATIENT TO FOLLOW UP WITH DR. BLEVINS IN 3 TO 5 DAYS. PATIENT STABLE AT THIS TIME. PATIENT WHEELED TO LOBBY FOR DISCHARGE BY FELIPA JASSO, DAUGHTER AWAITING TO DIRECTOR OF MARKET RESEARCH PATIENT.
== END 2019-09-26 17:53 | disposition home or self-care (01) ==
LOC: EDH 22:56 → EDHIP 09-25 00:41 → 3DH 09-25 09:24
PROVIDERS: ADMIT Internal Medicine Critical Care Medicine; ATTEND Internal Medicine Critical Care Medicine
DX: R55 Syncope and collapse (principal); N39.0 Urinary tract infection, site not specified; K52.9 Noninfective gastroenteritis and colitis, unspecified; E11.9 Type 2 diabetes mellitus without complications; E78.5 Hyperlipidemia, unspecified; I10 Essential (primary) hypertension; I25.10 Atherosclerotic heart disease of native coronary artery without angina pectoris; Z95.1 Presence of aortocoronary bypass graft; Z79.82 Long term (current) use of aspirin
CPT/HCPCS: 36415 ×3; 70450; 71045; 74176; 80048; 80053; 81003; 82550; 83605 ×2; 83690; 83735; 83880; 84100; 84484 ×3; 85025 ×2; 85610; 85730; 87040 ×2; 87077; 87088; 87186; 93005 ×2; 96361 ×2; 96365; 96366 ×2; 96375; 96376; 99285; G0378 ×25; J0696 ×2; J1956; J2405; J3490 ×4; J7120

== ENCOUNTER → 2021-07-01 | Outpatient (CLI) | payer OTHER, MEDICARE ==
[~2021-07-01] MED LIST changes: -BISA5TAB12 PO; -GABA-529 PO; +GABA300S PO; +LEVO112T7 PO; -LEVO75 PO; +MEMA10TA11 PO; -MEMA10TA55 PO; +METR500T PO; -MONT10TA26 PO
[2021-07-01 12:51] LABS: ALBUMIN 3.8 g/dL (3.5-5.0); BILIRUBIN,DIRECT 0.1 mg/dL (0.0-0.3); BILIRUBIN,TOTAL 0.4 mg/dL (0.2-1.0); TOTAL PROTEIN, SERUM 6.8 g/dL (6.0-8.3)
== END | disposition home or self-care (01) ==
LOC: LAB 08:26
PROVIDERS: ATTEND Internal Medicine Cardiovascular Disease
DX: I50.32 Chronic diastolic (congestive) heart failure (principal)
CPT/HCPCS: 36415; 80061; 80076

== ENCOUNTER → 2021-11-26 | Outpatient (CLI) | payer OTHER, MEDICARE ==
[2021-11-26 12:39] LABS: CREATININE 1.1 mg/dL (0.5-1.5); POTASSIUM 4.2 mmol/L (3.5-5.1)
== END | disposition home or self-care (01) ==
LOC: LAB 08:09
PROVIDERS: ATTEND Internal Medicine Cardiovascular Disease
DX: I50.33 Acute on chronic diastolic (congestive) heart failure (principal)
CPT/HCPCS: 36415; 80048; 83880

== ENCOUNTER → 2023-09-14 | Outpatient (CLI) | payer OTHER, MEDICARE ==
[~2023-09-14] MED LIST changes: +ASPI-1197 PO; +ATOR40TA69 PO; -CILO100T PO; +CILO100T3 PO; +CLOP-31 PO; +DORZ10DR9 OU; +FOLI1 PO; +GABA-529; -GABA300S PO; +GABA300S3 PO; +IRON18TA PO; +LATA2.5D14 OU; +LORA10TA7 PO; +MEMA10TA21 PO; +METO25TA6 PO; +POTA-200 PO; +QUET25TA36 PO; +VIT1TABL66 PO
[2023-09-14 09:59] LABS: BASOPHILS # (AUTO) 0.05 K/uL (0.00-0.20); BASOPHILS % (AUTO) 0.9 % (0.0-5.0); EOSINOPHILS # (AUTO) 0.18 K/uL (0.00-0.70); EOSINOPHILS % (AUTO) 3.1 % (0.0-8.0); HEMATOCRIT 41.8 % (36-48); IMMATURE GRANULOCYTE ABSOLUTE 0.01 K/uL (0-1); LYMPHOCYTES # (AUTO) 1.5 K/uL (1.0-4.8); LYMPHOCYTES % (AUTO) 26.1 % (21.0-51.0); MEAN CORPUSCULAR HEMOGLOBIN 30.6 pg (27.0-33.0); MEAN CORPUSCULAR HGB CONC 31.8 g/dL (32.0-36.0); MEAN CORPUSCULAR VOLUME 96.1 fL (79-99); MONOCYTES # (AUTO) 0.6 K/uL (0.1-1.0); MONOCYTES % (AUTO) 9.7 % (3.0-13.0); NEUTROPHILS # (AUTO) 3.5 K/uL (1.8-7.7); PLATELET COUNT (AUTO) 190 K/uL (130-400); RED BLOOD CELL COUNT(AUTO) 4.35 MIL/uL (4.00-5.50); RED CELL DISTRIBUTION WIDTH 13.9 % (11.0-15.5); WHITE BLOOD COUNT (AUTO) 5.9 K/uL (4.8-10.8)
[2023-09-14 10:15] LABS: ALBUMIN 3.8 g/dL (3.5-5.0); BILIRUBIN,TOTAL 0.4 mg/dL (0.2-1.0); CREATININE 1.1 mg/dL (0.5-1.0); POTASSIUM 4.6 mmol/L (3.5-5.1); TOTAL PROTEIN, SERUM 7.1 g/dL (6.0-8.3)
[2023-09-14 10:29] LABS: B-TYPE NATRIURETIC PEPTIDE 164 pg/mL (0-100)
== END | disposition home or self-care (01) ==
LOC: LAB 08:38
PROVIDERS: ATTEND Internal Medicine Cardiovascular Disease
DX: E11.9 Type 2 diabetes mellitus without complications (principal); I50.32 Chronic diastolic (congestive) heart failure
CPT/HCPCS: 36415; 80053; 80061; 83880; 85025

== ENCOUNTER → 2024-04-13 | Outpatient (CLI) | payer OTHER, MEDICARE ==
[2024-04-13 12:30] LABS: ALBUMIN 3.9 g/dL (3.5-5.0); BILIRUBIN,TOTAL 0.5 mg/dL (0.2-1.0)
== END | disposition home or self-care (01) ==
LOC: LAB 08:06
PROVIDERS: ATTEND Internal Medicine Cardiovascular Disease
DX: E78.2 Mixed hyperlipidemia (principal)
CPT/HCPCS: 36415; 80053; 80061

== ENCOUNTER 2024-07-22 06:29 | Day surgery (SDC) | payer OTHER, MEDICAID ==
[2024-07-20 11:13] LABS: BASOPHILS # (AUTO) 0.05 K/uL (0.00-0.20); BASOPHILS % (AUTO) 0.8 % (0.0-5.0); EOSINOPHILS # (AUTO) 0.22 K/uL (0.00-0.70); EOSINOPHILS % (AUTO) 3.7 % (0.0-8.0); HEMATOCRIT 42.4 % (36-48); IMMATURE GRANULOCYTE ABSOLUTE 0.02 K/uL (0-1); LYMPHOCYTES # (AUTO) 1.5 K/uL (1.0-4.8); LYMPHOCYTES % (AUTO) 25.3 % (21.0-51.0); MEAN CORPUSCULAR HEMOGLOBIN 30.9 pg (27.0-33.0); MEAN CORPUSCULAR HGB CONC 32.1 g/dL (32.0-36.0); MEAN CORPUSCULAR VOLUME 96.4 fL (79-99); MONOCYTES # (AUTO) 0.5 K/uL (0.1-1.0); MONOCYTES % (AUTO) 8.5 % (3.0-13.0); NEUTROPHILS # (AUTO) 3.7 K/uL (1.8-7.7); NEUTROPHILS % (AUTO) 61.4 % (40.0-77.0); PLATELET COUNT (AUTO) 171 K/uL (130-400); RED CELL DISTRIBUTION WIDTH 14.4 % (11.0-15.5)
[2024-07-20 11:23] LABS: POTASSIUM 4.3 mmol/L (3.5-5.1)
[2024-07-20 11:29] LABS: APPEARANCE,URINE CLEAR (CLEAR); BILIRUBIN,URINE NEGATIVE (NEGATIVE); COLOR,URINE LIGHT-YELLOW (YELLOW); GLUCOSE, URINE (UA) >=1000 mg/dL (NEGATIVE); KETONES,URINE NEGATIVE (NEGATIVE); LEUKOCYTE ESTERASE ,URINE 25 Leu/uL (NEGATIVE); NITRATE,URINE NEGATIVE (NEGATIVE); OCCULT BLOOD,URINE NEGATIVE (NEGATIVE); PH,URINE 7.5 (5.0-8.0); PROTEIN,URINE NEGATIVE (NEGATIVE); UROBILINOGEN,URINE 0.2 mg/dL (0.2-1.0)
[2024-07-20 11:33] VITALS: BP 178/90; PULSE 55; RESP 19; TEMP 97.7
[2024-07-20 11:33] LABS: B-TYPE NATRIURETIC PEPTIDE 186 pg/mL (0-100)
[2024-07-20 11:35] LABS: ADD UA MICROSCOPIC YES
[2024-07-20 11:36] LABS: INR 1.03 (0.85-1.15); PROTHROMBIN TIME 10.9 SEC (9.6-11.6)
[2024-07-20 11:37] LABS: PARTIAL THROMBOPLASTIN TIME 28.4 SEC (26.3-35.5)
[2024-07-20 11:47] LABS: RBC,URINE 0-1 /HPF (0-1)
--- NOTE | 2024-07-20 12:12 | EKG ---
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 : 1940 Requested By: WYATT MCFARLANE Order Number: [id number] Reading MD: Miguel A Dimas Measurements Intervals [place] Rate: 53 P: 42 ND: 159 QRS: -8 QRSD: 155 T: 7 QT: 495 QTc: 466 Interpretive Statements Sinus Bradycardia Ventricular trigeminy Right bundle branch block Lateral infarct, age indeterminate Compared to ECG 05/01/2020 03:34:37 Ventricular premature complex(es) now present Right bundle-branch block now present Myocardial infarct finding now present Incomplete right bundle-branch block no longer present ST (T wave) deviation no longer present Possible ischemia no longer present Electronically Signed On 07-21-2024 13:53:53 CDT by Miguel A Dimas Please click the below link to view image of tracing.
--- NOTE | 2024-07-20 12:33 | HMCIMG ---
CHEST 1VW REASON: PRE OP COMPARISON: 04/21/2024 FINDINGS: Lungs are clear. Heart size is normal. There is no vascular congestion. There is been a previous median sternotomy. There are surgical hardware in the lower cervical spine. IMPRESSION: 1. No acute finding, no change.
[2024-07-22] VITALS (7 sets, daily range): BP systolic 148–181; BP diastolic 68–80; PULSE 48–71; RESP 14–17; TEMP 97–97.7
[~2024-07-22] VITALS: Ht 152.4 cm; Wt 78.1 kg
[~2024-07-22 06:29] MED LIST changes: -AMLO5TAB4 PO; -ASPI81TA40 PO; -ATOR40TA69 PO; +BREX2TAB PO; +CALC-987 PO; +CETI10TA57 PO; +CHOL2000 PO; -CHOL500050 PO; -CILO100T3 PO; -CLON0.1T PO; -CLOP-31 PO; +DAPA10TA PO; +DULO60CA64 PO; +EZET10TA48 PO; -FE F1CAP8 PO; -FOLI1 PO; -FOLI1TAB15 PO; -IRON18TA PO; +KRIL500C PO; +LEVO100C5 PO; -LEVO112T7 PO; -LORA10TA7 PO; +LOSA25TA41 PO; -MEMA10TA11 PO; +METF-910 PO; -METO5TAB2 PO; -METR500T PO; -OMEP20CA12 PO; +ONE A DAY PO; +PILOC5 PO; -POTA-200 PO; -POTA10TA14 PO; -QUET25TA36 PO; +ROSU10TA72 PO; -SIMV40TA59 PO; +TUMERIC CURCUMIN PO; +UBID100C10 PO; -VIT1TABL66 PO
[2024-07-22] MEDS ORDERED: HEParin 10,000 UNIT/10ML (1,000 UNIT/ML) VIAL ONE (08:59)
[2024-07-22] MEDS ORDERED: LIDOCAINE HCL 400MG/20ML VIAL ONE (08:59)
[2024-07-22] MEDS ORDERED: IOHEXOL 350 MG/ML 100ML INFUS..BTL IV ONE ×2 (08:59→10:38)
[2024-07-22] MEDS ORDERED: VERAPAMIL HCL 2.5 MG/ML VIAL ONE (08:59)
[2024-07-22] MEDS ORDERED: HEParin-NS 1,000 UNIT/500 ML 1,000 ML IV ONE (08:59)
[2024-07-22] MEDS ORDERED: NITROGLYCERIN 50MG VIAL ONE (08:59)
[2024-07-22] MEDS ORDERED: niCARDIpine 25MG INJ IV ONE (09:03)
[2024-07-22] MEDS ORDERED: SODIUM BICARB 50MEQ 50ML VIAL 50 ML ONE (09:37)
[2024-07-22] MEDS ORDERED: HEParin-NS 1,000 UNIT/500 ML 500 ML IV ONE ×2 (09:45→10:54)
[2024-07-22] MEDS ORDERED: FENTanyl CITRate PF 50 MCG/1 ML 2ML VIAL ONE (09:52)
[2024-07-22] MEDS ORDERED: MIDAZOLAM HCL 1 MG/ML 2ML VIAL ONE (09:53)
[2024-07-22] MEDS ORDERED: IOHEXOL-350 50ML VIAL IV ONE (10:04)
[2024-07-22] MEDS ORDERED: 0.9%NACL 1000ML 1,000 ML IV SCH (11:30)
--- NOTE | 2024-07-22 11:53 | PRN ---
Left Heart Catheterization, Left Ventricular Cineangiogram, Aortic Root Angiogram, Coronary Arteriogram And Right Heart Catheterization Indication: Known aortic stenosis and mitral regurgitation with previous coronary bypass and crescendo last 3-4 dyspnea with recurrent diastolic failure Technique: Patient was brought to the lab in a fasting state after informed con sent and sedated with 50 mcg fentanyl. Additional fentanyl was administered as needed. Under local anesthesia with 1% lidocaine using micropuncture technique under fluoroscopic and ultrasound guidance the right common femoral artery and vein were punctured anteriorly and a 55 cm seven Wallisian sheath was inserted into the artery and placed in the proximal descending aorta, a seven Wallisian sheath into the vein. Right heart catheterization was carried out with a [place] S trip catheter, measuring pressures at right atrium, right ventricle, pulmonary artery and pulmonary capillary wedge positions. A six Wallisian pigtail was positioned in the aortic root and simultaneous proximal descending aorta, aortic root pressures were measured. We exchanged for different transducers because it was a 6 mm intrinsic gradient and this was only reduced to 4 mm by trouble shooting. Aortic root angiogram was obtained in GEOVANNA projection. A six Wallisian a L2 catheter with a straight wire was used to cannulate the left ventricle and we exchanged for a six Wallisian pigtail. Simultaneous LV/proximal descending aorta pressure was measured and simultaneous LV/PCW was measured. Cardiac output was assessed by thermodilution method. Left ventricular cineangiography was performed in JACOBS projection. LV/a 0 pressure was remeasured and a pullback was obtained. We exchanged for a six Wallisian 4 cm left Carly with which we engaged the left main for left coronary arteriogram in multiple projections. We exchanged for a six Wallisian 4 cm right Carly and then a six Wallisian 4 cm a are mod to engage the right coronary for right coronary arteriogram in multiple projections. At this point the patient had received 140 mL contrast and was known to have a cardiac index of only 1.7 L/min so we terminated the procedure, did not image the bypass grafts directly; this can be done later by CTA if necessary. At the conclusion of the case the arteriotomy was closed with Perclose and the venotomy was closed with Vascade with excellent hemostasis and no complications. Patient was transferred from the lab in stable condition. Results: Hemodynamics: Mean right atrial pressure two, A-wave four, V-wave four. Right ventricular systolic pressure 35, RVEDP to. Pulmonary artery pressure 36/15, mean 25. Mean PCW 11, A-wave 15, V-wave 15. LVEDP 16, LV systolic pressure 202. Aortic root pressure 192/75, mean 120. Aortic outflow gradient is 10+ four from the intrinsic of the system, 14 mm at rest. Aortic valve area 0.68 cm. Cardiac output 3 L/min, cardiac index 1.71 L/min per meter body surface area Ventriculography: Left ventricular cineangiography demonstrates normal left ventricular size and function with diffuse inferior hypokinesia but by planimetry the ejection fraction is 59%. The mitral valve is notable for 1+ mitral regurgitation, does not feel the left atrium. Aortography: There is a stenotic aortic valve with a mild jet and 1+ aortic insufficiency. Coronary Arteriography: This is a right-dominant system. The right coronary is notable for a difficult diseased ostium with a calcified 90% stenosis, followed by another 90% stenosis within 1 cm. The remainder of the right coronary system is free of high-grade disease and this consists of a posterior descending and two posterolateral branches. It is not clear if there is a patent graft to the right coronary. The left main is heavily calcified and narrowed by 80% distally; this 80% stenosis is contiguous with 80% ostial LAD and 90% ostial left circumflex bulky calcified disease. The left anterior descending is narrowed by 80% at its origin than segmental calcified 65-70% stenosis to the level of the 1st septal, which is also nearby 80% in its proximal portion. After the 3rd diagonal there is segmental 98% stenosis of the LAD with MIKY two flow to the apical segment of the LAD. It is not clear if there is a patent graft to the right coronary. The left circumflex is notable for bulky calcified 90% ostial disease. The 1st obtuse marginal is moderate-size and narrowed by 80% at its origin. The 2nd obtuse marginal is notable for competitive flow from an apparently patent vein graft. Between the 2nd obtuse marginal and a large terminal branch of the circumflex there is a segmental calcified 90% stenosis. There is what appears to be an occluded vein graft on this terminal branch and it is unclear whether that may have been a sequential graft serving the 2nd obtuse marginal and the terminal branch of the circumflex; the terminal branch of the circumflex and bifurcates and both branches approach the apex. Conclusions: 1. Low-flow low gradient severe aortic stenosis is present. 2. 1+ aortic insufficiency, 1+ mitral regurgitation. 3. Inferior hypokinesia, EF 59%. 4. Severe calcified left main and three-vessel coronary disease. 5. There appears to be a patent graft to the 2nd obtuse marginal branch of circumflex, and it is unclear whether there are additional patent grafts or not. 6. Markedly reduced cardiac output, cardiac index 1.7 L/min per meter. 7. Because of markedly reduced cardiac output and small body size, we limited contrast administration to 140 mL and we can evaluate graft patency by CTA if necessary. WYATT MCFARLANE MD Jul 22, 2024 11:53
--- NOTE | 2024-07-22 15:00 | NUR ---
PT DAUGHTER AND GRANDSON GIVEN VERBAL AND WRITTEN DISCHARGE INSTRUCTIONS IN POLISH "PREFERRED LANGUAGE" IV SITE ASYMPTOMATIC. RIGHT INGUINAL AREA ASYMPTOMATIC. DAUGHTER ASSESSED RIGHT GROIN ALONG WITH MYSELF DID EXPLAIN TO HER IF SHE FEELS OR NOTICES SOMETHING DIFFERENT FROM NOW CALL DR. ESCOBEDO OFFICE. DAUGHTER AND PT OFFERED ASSISTANCE TO CHANGE WAS TOLD DAUGHTER CAN ASSIST PT. PT TAKEN OUT VIA WHEELCHAIR FAMILY DRIVING
[2024-07-22] MEDS ORDERED: atorVAStatin 40 MG TABLET PO SCH (21:00)
[2024-07-22] MEDS ORDERED: PILOCARPINE HCL 5 MG TABLET PO SCH (21:00)
[2024-07-22] MEDS ORDERED: CA 600MG+VIT D 400 UNIT TAB 1 TAB TABLET PO SCH (21:00)
[2024-07-22] MEDS ORDERED: LATANOPROST 2.5 ML DROPS OU SCH (21:00)
[2024-07-22] MEDS ORDERED: [UNRECOGNIZED DRUG - OTHER] PO SCH (21:00)
[2024-07-22] MEDS ORDERED: metoPROLOL tartRATE 25 MG TAB PO SCH (21:00)
[2024-07-22] MEDS ORDERED: ceTIRIzine HCL 5 MG TABLET PO SCH (21:00)
[2024-07-22] MEDS ORDERED: MEMANtine HCL 5 MG TABLET PO SCH (21:00)
[2024-07-22] MEDS ORDERED: CHOLECALCIFEROL 50 MCG PO SCH (21:00)
[2024-07-22] MEDS ORDERED: NON-FORMULARY MEDICATION 1 EACH (Krill Oil 500 MG) PO SCH (21:00)
[2024-07-22] MEDS ORDERED: UBIDECARENONE 100 MG PO SCH (21:00)
[2024-07-23] MEDS ORDERED: levoTHYROxine 100 MCG TABLET PO SCH (09:00)
[2024-07-23] MEDS ORDERED: TUMERIC CURCUMIN PO SCH (09:00)
[2024-07-23] MEDS ORDERED: Dapagliflozin Propanediol (Farxiga) 10 MG PO SCH (09:00)
[2024-07-23] MEDS ORDERED: LoSARTan 25 MG TABLET PO SCH (09:00)
[2024-07-23] MEDS ORDERED: duloXETine HCL 30 MG CAP PO SCH (09:00)
[2024-07-23] MEDS ORDERED: GABAPENTIN 300 MG CAPSULE PO SCH (09:00)
[2024-07-23] MEDS ORDERED: EZETIMIBE 10 MG TAB PO SCH (09:00)
[2024-07-23] MEDS ORDERED: ASPIRIN 81MG CHEW TAB PO SCH (09:00)
== END 2024-07-22 15:20 | disposition home or self-care (01) ==
LOC: DAH 06:29
PROVIDERS: ATTEND Internal Medicine Cardiovascular Disease
DX: I35.0 Nonrheumatic aortic (valve) stenosis (principal); I25.10 Atherosclerotic heart disease of native coronary artery without angina pectoris; R94.39 Abnormal result of other cardiovascular function study; I11.0 Hypertensive heart disease with heart failure; I50.42 Chronic combined systolic (congestive) and diastolic (congestive) heart failure; R06.09 Other forms of dyspnea; I34.0 Nonrheumatic mitral (valve) insufficiency; I45.10 Unspecified right bundle-branch block; I25.2 Old myocardial infarction; E03.9 Hypothyroidism, unspecified; G47.33 Obstructive sleep apnea (adult) (pediatric); E78.2 Mixed hyperlipidemia; F32.A Depression, unspecified; Z98.42 Cataract extraction status, left eye; Z98.41 Cataract extraction status, right eye; Z98.890 Other specified postprocedural states; Z99.89 Dependence on other enabling machines and devices; Z95.1 Presence of aortocoronary bypass graft; Z79.84 Long term (current) use of oral hypoglycemic drugs; Z79.82 Long term (current) use of aspirin; Z79.899 Other long term (current) drug therapy
CPT/HCPCS: 80048; 83880; 85025; 85610; 85730; 81001; 36415; 71045; 93005; 99157 ×5; 96360; 96361; 99156; 93460; 93567; 82948; Q9965; C1769 ×2; C1894 ×4; C1760 ×2; J3010; J3490 ×3; J1644 ×4; Q9967 ×3; A4215; A4335; A4222; A4223; A4221; A4663; A4216; A4606; J2250

== ENCOUNTER → 2024-12-05 | Outpatient (CLI) | payer OTHER, MEDICAID ==
[~2024-12-05] MED LIST changes: -EZET10TA48 PO; +EZET10TA80 PO; -LATA2.5D14 OU; +LATA2.5D7 OU; -ROSU10TA72 PO; +ROSU10TA98 PO
--- NOTE | 2024-12-06 07:45 | HMCIMG ---
EXAM: CR Chest, 1 views. CLINICAL HISTORY: Cough. COMPARISON: None provided. FINDINGS: The lungs show no infiltrate or other acute findings. No pleural effusion or pneumothorax. Cardiomegaly is noted. Radio-opaque sternal sutures are noted. No acute osseous abnormality. IMPRESSION: No acute thoracic pathology. Cardiomegaly is noted. Radio-opaque sternal sutures are noted. /[place]
== END | disposition home or self-care (01) ==
LOC: RAH 13:47
PROVIDERS: ATTEND Internal Medicine Cardiovascular Disease
DX: I51.7 Cardiomegaly (principal); I50.32 Chronic diastolic (congestive) heart failure
CPT/HCPCS: 71046